=== PATIENT | male | born 1965 | race African-American/Black ===

== ENCOUNTER 2025-06-04 17:23 | Emergency (ER) | payer OTHER ==
[~2025-06-04] VITALS: Ht 170.2 cm; Wt 81.0 kg
[2025-06-04 17:25] VITALS: O2SAT 98
[2025-06-04 18:16] LABS: ADD RBC MORPHOLOGY YES; BASOPHILS % 0.3 % (0.0-2.0); EOSINOPHILS % 1.4 % (0.0-5.0); HEMATOCRIT. 40.0 % (42.0-52.0); HEMOGLOBIN. 13.1 g/dL (14.0-18.0); LYMPHOCYTES % 21.7 % (20.0-50.0); MEAN PLATELET VOLUME 8.4 fl (7.4-10.4); MONOCYTES % 9.9 % (2.0-8.0); NEUTROPHILS % 66.7 % (40.0-76.0); PLATELET 228 x1000/uL (130-400); RED BLOOD CELL COUNT 4.54 mill/uL (4.7-6.1); RED CELL DISTRIBUTION WIDTH 22.1 % (11.6-14.6)
[2025-06-04 18:30] LABS: CREATININE 1.5 mg/dL (0.6-1.3); INR 1.0; UREA NITROGEN BLOOD 6 mg/dL (9-23)
[2025-06-04 18:31] LABS: ASPARTATE AMINOTRANSFERASE 31 IU/L (<34); PROTEIN TOTAL 6.1 g/dL (6.0-8.3); TROPONIN I HIGH SENSITIVITY 13 ng/L (3.0-53)
[2025-06-04 18:32] LABS: BILIRUBIN DIRECT 0.2 mg/dL (<=3.0); BILIRUBIN TOTAL 0.6 mg/dL (0.1-1.0)
[2025-06-04 18:38] LABS: PLATELET ESTIMATE NORMAL
[2025-06-04 18:41] VITALS: BP 141/84; PULSE 92; RESP 13; TEMP 36.9; O2SAT 97
== END 2025-06-04 19:20 | disposition home or self-care (01) ==
LOC: ER 17:23
DX: R55 Syncope and collapse (principal); F10.90 Alcohol use, unspecified, uncomplicated; E11.9 Type 2 diabetes mellitus without complications; I10 Essential (primary) hypertension; I95.9 Hypotension, unspecified; R06.02 Shortness of breath; Y90.9 Presence of alcohol in blood, level not specified
CPT/HCPCS: 36415; 71045; 80048; 80076; 83735; 83880; 84484; 85025; 93005; 99285